=== PATIENT | female | born 1935 | race Caucasian/White ===

== ENCOUNTER 2019-11-13 06:28 | Outpatient (CLI) | payer MEDICARE, OTHER ==
[2019-11-13 14:32] LABS: Hemoglobin 10.4 g/dL (12.0-16.0); Mean Corpuscular HGB CONC 32.6 g/dL (32.0-36.0); Mean Corpuscular Hemoglobin 28.1 pg (27.0-31.0); Mean Corpuscular Volume 86.2 fL (78.0-98.0); Mean Platelet Volume 7.1 fL (7.4-10.4); Platelet Count 359 thou/uL (130-400); RBC Distribution Width 13.5 % (11.5-14.5); Red Blood Cell (RBC) Count 3.68 mill/uL (4.20-5.40); White Blood Cell (WBC) Count 6.9 thou/uL (4.8-10.8)
[2019-11-13 14:52] LABS: Anion Gap 14 mmol/L (10-20); BUN (Urea Nitrogen) 40 mg/dL (9.8-20.1); Calc. Creatinine Clearance 0 mL/min (70-130); Calcium 9.4 mg/dL (7.8-10.44); Carbon Dioxide 25 mmol/L (23-31); Chloride 105 mmol/L (98-107); Estimated GFR-MDRD 65; Glucose 92 mg/dL (83-110); Potassium 4.2 mmol/L (3.5-5.1); Sodium 140 mmol/L (136-145)
[2019-11-14 10:40] LABS: SARS-CoV-2 MS2 Positive; SARS-CoV-2 N Gene Negative; SARS-CoV-2 S Gene Negative; SARS-CoV-2 orf1ab Negative
== END 2019-11-13 06:29 | disposition home or self-care (01) ==
LOC: LABBT 06:28
PROVIDERS: ATTEND Orthopaedic Surgery
DX: Z01.812 Encounter for preprocedural laboratory examination (principal); Z11.59 Encounter for screening for other viral diseases; M17.11 Unilateral primary osteoarthritis, right knee
CPT/HCPCS: 80048; 85027; U0003; 87635

== ENCOUNTER 2019-11-17 13:02 | Inpatient (IN) | payer MEDICARE ==
[~2019-11-17 13:02] MED LIST: Dexamethasone 20 MG/5 ML VIAL ONE; EPHEDRINE 25 MG/5 ML SYRINGE ONE; Lidocaine 1% PF 5 ML VIAL ONE; PHENYLEPHRINE-NS 100 MCG/ML 10 ML SYRINGE ONE; PROPOFOL 200 MG/20 ML VIAL ONE
[2019-11-17] MEDS ORDERED: Midazolam HCl 2 mg/2 ml Vial ONE (13:57)
[2019-11-17] MEDS ORDERED: Fentanyl 100 MCG/2 ML VIAL ONE ×4 (13:57→18:38)
[2019-11-17] MEDS ORDERED: Promethazine HCl 25 MG/ML VIAL IM PRN ×2 (14:15→17:31)
[2019-11-17] MEDS ORDERED: Zolpidem Tartrate 5 MG TAB PO PRN ×2 (14:15→17:31)
[2019-11-17] MEDS ORDERED: traMADol HCl 50 MG TAB PO PRN (14:15)
[2019-11-17] MEDS ORDERED: Ondansetron PF 4 MG/2 ML Vial IVP PRN ×2 (14:15→17:31)
[2019-11-17] MEDS ORDERED: Acetaminophen 325 MG TAB PO PRN (14:15)
[2019-11-17] MEDS ORDERED: Fentanyl 100 MCG/2 ML VIAL SLOW IVP PRN (14:16)
[2019-11-17] MEDS ORDERED: diphenhydrAMINE 25 MG CAP PO PRN (17:31)
[2019-11-17] MEDS ORDERED: Loratadine 10 MG TAB PO PRN (17:33)
[2019-11-17] MEDS ORDERED: hydrOXYzine 25 MG TAB PO PRN (17:33)
[2019-11-17] MEDS ORDERED: HYDROcodone/Acetaminophen 10/325 mg Tablet ONE (18:42)
--- NOTE | 2019-11-17 18:49 | RAD ---
Exam:2 views right HISTORY: Status post total knee arthropod COMPARISON: None FINDINGS: Postoperative changes compatible with total knee arthroplasty. Subcutaneous emphysema, join t effusion. Near anatomic alignment. IMPRESSION: Expected postoperative change.
[2019-11-17] MEDS: CEFAZOLIN 2 GM in Premix Bag 1 BAG IVPB SCH (20:56)
[2019-11-17] MEDS: Meclizine HCl 25 MG TAB PO SCH (20:56)
[2019-11-17] MEDS: DULoxetine 60 MG CAP PO SCH (20:56)
[2019-11-17] MEDS: Gabapentin 300 MG CAP PO SCH (20:56)
[2019-11-17] MEDS: Aspirin 81 mg Enteric Coated Tablet PO SCH (20:56)
[2019-11-17] MEDS: rOPINIRole HCl 1 MG TAB PO SCH (21:28)
[2019-11-17] MEDS: HYDROcodone/Acetaminophen 10/325 mg Tablet PO PRN (21:28)
--- NOTE | 2019-11-18 00:42 | PDOC.HOSPP ---
- Subjective Encounter Date: 11/18/19 Encounter Time: 00:41 Subjective: Patient seen and examined. No new complaints. Denies any chest pain, SOB, abdominal pain or vomiting. Consulted for medical management. s/p Right TKR. - Objective Vital Signs & Weight: Vital Signs (12 hours) Temp Pulse Resp BP Pulse Ox 11/17/19 23:40 97.9 F 84 16 98/59 L 98 Weight Weight 122 lb Hospitalist ROS - Review of Systems Constitutional: denies: fever, chills Cardiovascular: denies: chest pain, palpitations, orthopnea, paroxysmal noc. dyspnea, edema, light headedness, other Gastrointestinal: denies: nausea, vomiting, abdominal pain, diarrhea, constipation, melena, hematochezia, other - Medication Medications: Active Medications Generic Name Dose Route Start Last Admin Trade Name Freq PRN Reason Stop Dose Admin Hydrocodone Bitart/Acetaminophen 2 tab 11/17/19 14:15 11/17/19 21:28 [place] 10/325 PO 2 tab Q4H PRN Administration PAIN (4-6) Aspirin 81 mg 11/17/19 21:00 11/17/19 20:56 Ecotrin PO 81 mg BID MAXX Administration Duloxetine HCl 60 mg 11/17/19 21:00 11/17/19 20:56 Cymbalta PO 60 mg HS MAXX Administration Fentanyl 50 mcg 11/17/19 14:16 11/17/19 20:57 Sublimaze SLOW IVP 50 mcg Q1H PRN Administration breakthrough pain Gabapentin 300 mg 11/17/19 21:00 11/17/19 20:56 Neurontin PO 300 mg TID MAXX Administration Cefazolin Sodium/Dextrose 2 gm 50 mls @ 100 mls/hr 11/17/19 21:00 11/17/19 20 :56 / Device IVPB 11/18/19 05:29 50 mls 0500,1300,2100 MAXX Administration Meclizine HCl 25 mg 11/17/19 21:00 11/17/19 20:56 Antivert PO 25 mg TID MAXX Administration Ropinirole HCl 1 mg 11/17/19 21:00 11/17/19 21:28 Requip PO 1 mg HS MAXX Administration - Exam General Appearance: NAD, awake alert Eye: anicteric sclera Heart: RRR, no murmur, no gallops, no rubs, normal peripheral pulses Respiratory: CTAB, no wheezes, no rales, no ronchi Gastrointestinal: soft, non-tender, no guarding, no rigidity, diminished bowl sounds Extremities: no cyanosis, no edema Neurological: no focal deficits Psychiatric: normal affect, A&O x 3 Hosp A/P (1) Depression Code(s): F32.9 - MAJOR DEPRESSIVE DISORDER, SINGLE EPISODE, UNSPECIFIED Status : Chronic Plan: Agree with restarting cymbalta and ropinirole (2) HTN (hypertension) Code(s): I10 - ESSENTIAL (PRIMARY) HYPERTENSION Status: Chronic Plan: BP stable Will hold fosinopril/HCTZ for now Check BMP in am (3) Chronic pain Code(s): G89.29 - OTHER CHRONIC PAIN Status: Chronic Plan: Reports pain well controlled at this time (4) Status post total right knee replacement Code(s): Z96.651 - PRESENCE OF RIGHT ARTIFICIAL KNEE JOINT Status: Acute - Plan ASA 81 mg and PT per [facility] protocol Nerve block per anesthesia BMP in am
--- NOTE | 2019-11-18 01:24 | OP ---
DATE OF PROCEDURE: 11/17/2019 PROCEDURE PERFORMED: Right total knee arthroplasty. PREOPERATIVE DIAGNOSIS: Right knee osteoarthritis. POSTOPERATIVE DIAGNOSIS: Right knee osteoarthritis. COMPLICATIONS: None. ESTIMATED BLOOD LOSS: 100 mL. [employer]: Abdirahman De Leon PA-C IMPLANTS: Deaver triathlon knee, size 3 tibia, size 4 posterior stabilized femur, size 9 tibial insert, size 29 mm asymmetric patellar component. INDICATIONS FOR PROCEDURE: Ms. Wagner is an 84-year-old female, who has advanced osteoarthritis of her right knee. She has been indicated for total knee arthroplasty to restore anatomical alignment, relieve pain and provide increased mobility. Risks have been reviewed and do include infection, pain, scarring, nerve or vascular injury, DVT, PE, and others. DESCRIPTION OF PROCEDURE: Ms. Wagner was identified in the preoperative holding area. Her correct extremity was marked. She was carried to the operating room. She was positioned supine. General anesthesia was induced. A multidisciplinary time-out was performed. The right lower extremity was prepped and draped in sterile fashion. We began the procedure with an anterior approach to the knee. We dissected down through the subcutaneous tissues to the patellar retinaculum. We made a medial parapatellar arthrotomy. At this point, we exposed the underlying knee joint. We performed a medial release and an anterior fat pad resection. We then everted the patella. We resected 9 mm of patella bone. At this point, we drilled our patella peg holes. We then placed our trial and re-measured with our caliper. This reconstituted the patella height. We then flexed the knee and moved to the femur. We inserted the femur intramedullary guide. We then placed our distal femoral cutting block. We removed osteophytes. We resected 9 mm of distal femoral bone. We then placed our four-in-one cutting block, a size 4 was appropriate for this patient. We made our anterior, posterior, and chamfer cuts. We then made our box osteotomy using our box guide. This completed femoral preparation. Next, we moved to the tibia. We placed our extramedullary tibial guide. We then pinned our guide into place. We resected the proximal tibia, 9 mm from the medial tibial bone. This leveled our tibia. We then punched our tibia with our appropriate keel. At this point, we thoroughly irrigated with copious lavage. We then trialed. A size 9 polyethylene insert gave a good fit with full extension and good range of motion. The trials were removed. We mixed cement on the back table and we implanted our final components. We held the knee in extension until fully hardened. At this point, we checked for any loose cement. We then closed in layers. #2 Vicryl suture for the capsule, followed by a layered closure was accomplished. The patient was taken to the recovery room in good condition at this point without complication. Job ID: [id number]
[2019-11-18 01:30] VITALS: BMI 24.5
[2019-11-18] MEDS: CEFAZOLIN 2 GM in Premix Bag 1 BAG IVPB SCH (04:00)
[2019-11-18] MEDS: HYDROcodone/Acetaminophen 10/325 mg Tablet PO PRN ×4 (04:02→17:55)
[2019-11-18 06:06] LABS: Hemoglobin 7.6 g/dL (12.0-16.0); Mean Corpuscular HGB CONC 31.8 g/dL (32.0-36.0); Mean Corpuscular Hemoglobin 27.7 pg (27.0-31.0); Mean Corpuscular Volume 87.1 fL (78.0-98.0); Mean Platelet Volume 7.1 fL (7.4-10.4); Platelet Count 245 thou/uL (130-400); RBC Distribution Width 13.9 % (11.5-14.5); Red Blood Cell (RBC) Count 2.74 mill/uL (4.20-5.40); White Blood Cell (WBC) Count 8.3 thou/uL (4.8-10.8)
[2019-11-18 06:25] LABS: Anion Gap 13 mmol/L (10-20); BUN (Urea Nitrogen) 31 mg/dL (9.8-20.1); Calc. Creatinine Clearance 54 mL/min (70-130); Calcium 8.5 mg/dL (7.8-10.44); Carbon Dioxide 25 mmol/L (23-31); Chloride 104 mmol/L (98-107); Estimated GFR-MDRD 67; Glucose 140 mg/dL (83-110); Potassium 4.3 mmol/L (3.5-5.1); Sodium 138 mmol/L (136-145)
[2019-11-18] MEDS: Aspirin 81 mg Enteric Coated Tablet PO SCH ×2 (08:18→21:44)
[2019-11-18] MEDS: Senokot S 8.6-50 MG TAB PO SCH ×2 (08:19→21:44)
[2019-11-18] MEDS: Gabapentin 300 MG CAP PO SCH ×3 (08:19→21:44)
[2019-11-18] MEDS: Meclizine HCl 25 MG TAB PO SCH ×3 (08:19→21:44)
[2019-11-18] MEDS: Multivitamin W/ Minerals 1 TAB PO SCH (08:19)
[2019-11-18] MEDS: Ferrous Gluconate 324 MG TAB PO SCH ×2 (08:19→16:41)
[2019-11-18] MEDS ORDERED: [UNRECOGNIZED DRUG - OTHER] PO SCH (09:00)
[2019-11-18] MEDS ORDERED: HYDROCHLOROTHIAZIDE PO SCH (09:00)
[2019-11-18] MEDS ORDERED: FOSINOPRIL PO SCH (09:00)
[2019-11-18] MEDS ORDERED: Lisinopril/Hydrochlorothiazide 20 mg/12.5 mg Tablet PO SCH (09:00)
[2019-11-18] MEDS: traMADol HCl 50 MG TAB PO PRN ×2 (11:46→21:51)
--- NOTE | 2019-11-18 17:03 | PDOC.HOSPP ---
- Subjective Subjective: Seen and examined. Patient laying in the chair with her legs propped up, in no apparent distress. She is breathing comfortably on low-flow nasal cannula. Patient does not normally require oxygen. Patient with symptomatic anemia, will transfuse one unit packed red blood cells now. Patient was able to get up and walk to the door with the help of physical therapists. She is having expected postoperative pain. Patient does have chronic vertigo and dizziness, Meclizine helps her with this. - Objective Vital Signs & Weight: Vital Signs (12 hours) Temp Pulse Pulse Resp BP BP Pulse Ox 11/18/19 16:45 98.1 F 79 20 102/61 93 L 11/18/19 16:00 98.5 F 87 20 97/59 L 91 L 11/18/19 14:02 98.3 F 94 20 110/64 93 L 11/18/19 13:47 98.7 F 86 20 101/61 93 L 11/18/19 11:38 98.0 F 83 20 97/58 L 91 L 11/18/19 08:19 95 11/18/19 07:35 97.8 F 99 18 124/75 95 Weight Weight 142 lb 12.8 oz I&O: 11/17/19 11/18/19 11/19/19 06:59 06:59 06:59 Intake Total 820 0 Balance 820 0 Result Diagrams: 11/18/19 05:44 11/18/19 05:44 Radiology Reviewed by me: Yes Hospitalist ROS - Review of Systems All other systems reviewed; all pertinent +/- noted in HPI/Subj - Medication Medications: Active Medications Generic Name Dose Route Start Last Admin Trade Name Freq PRN Reason Stop Dose Admin Hydrocodone Bitart/Acetaminophen 2 tab 11/17/19 14:15 11/18/19 13:56 [place] 10/325 PO 2 tab Q4H PRN Administration PAIN (4-6) Aspirin 81 mg 11/17/19 21:00 11/18/19 08:18 Ecotrin PO 81 mg BID MAXX Administration Dimenhydrinate 50 mg 11/18/19 09:00 11/18/19 10:18 Dramamine PO 50 mg DAILY MAXX Administration Duloxetine HCl 60 mg 11/17/19 21:00 11/17/19 20:56 Cymbalta PO 60 mg HS MAXX Administration Fentanyl 50 mcg 11/17/19 14:16 11/17/19 20:57 Sublimaze SLOW IVP 50 mcg Q1H PRN Administration breakthrough pain Ferrous Gluconate 324 mg 11/18/19 08:00 11/18/19 16:41 Fergon PO 324 mg BID-WM MAXX Administration Gabapentin 300 mg 11/17/19 21:00 11/18/19 13:57 Neurontin PO 300 mg TID MAXX Administration Iron/Minerals/Multivitamins 1 tab 11/18/19 09:00 11/18/19 08:19 Theragran M PO 1 tab DAILY MAXX Administration Meclizine HCl 25 mg 11/17/19 21:00 11/18/19 13:57 Antivert PO 25 mg TID MAXX Administration Ondansetron HCl 4 mg 11/17/19 17:31 11/18/19 08:58 Zofran IVP 4 mg Q6H PRN Administration Nausea/Vomiting Ropinirole HCl 1 mg 11/17/19 21:00 11/17/19 21:28 Requip PO 1 mg HS MAXX Administration Senna/Docusate Sodium 2 tab 11/18/19 09:00 11/18/19 08:19 Senokot S PO 2 tab BID MAXX Administration Tramadol HCl 100 mg 11/17/19 14:15 11/18/19 11:46 Ultram PO 100 mg Q6H PRN Administration Moderate Pain 4-6 - Exam General Appearance: NAD, awake alert Eye: anicteric sclera ENT: normocephalic atraumatic, moist mucosa Neck: supple, symmetric, no lymphadenopathy Heart: no murmur, no gallops, no rubs Respiratory: CTAB, no wheezes, no rales, no ronchi, normal chest expansion, no tachypnea Gastrointestinal: soft, non-tender, no guarding, no rigidity Extremities: no clubbing, 1+ LE edema Skin: no lesions, no rashes Neurological: cranial nerve grossly intact, no focal deficits Musculoskeletal: generalized weakness Psychiatric: normal affect, A&O x 3 Hosp A/P (1) Osteoarthritis Code(s): M19.90 - UNSPECIFIED OSTEOARTHRITIS, UNSPECIFIED SITE Status: Acute (2) Ataxia Code(s): R27.0 - ATAXIA, UNSPECIFIED Status: Acute (3) Vertigo Code(s): R42 - DIZZINESS AND GIDDINESS Status: Acute (4) Status post total right knee replacement Code(s): Z96.651 - PRESENCE OF RIGHT ARTIFICIAL KNEE JOINT Status: Acute (5) Chronic pain Code(s): G89.29 - OTHER CHRONIC PAIN Status: Chronic (6) Depression Code(s): F32.9 - MAJOR DEPRESSIVE DISORDER, SINGLE EPISODE, UNSPECIFIED Status : Chronic (7) HTN (hypertension) Code(s): I10 - ESSENTIAL (PRIMARY) HYPERTENSION Status: Chronic (8) Anemia Code(s): D64.9 - ANEMIA, UNSPECIFIED Status: Acute - Plan Plan: orthopedic unit orthopedic surgery consultation, recommendations appreciated postoperative care pain control physical therapy, occupational therapy evaluation treatment patient with symptomatic anemia, will transfuse one unit of packed red blood cells now goal would be to wean patient from oxygen continue other home medications as able blood pressure control blood sugar control G.I. prophylaxis DVT prophylaxis
[2019-11-18] MEDS: Ropivacaine HCl/PF 250 ML in Premix Bag 1 BAG NERVE BLCK SCH (19:14)
[2019-11-18] MEDS: DULoxetine 60 MG CAP PO SCH (21:44)
[2019-11-18] MEDS: rOPINIRole HCl 1 MG TAB PO SCH (21:44)
[2019-11-19 05:49] LABS: Hemoglobin 8.3 g/dL (12.0-16.0); Mean Corpuscular HGB CONC 32.1 g/dL (32.0-36.0); Mean Corpuscular Hemoglobin 28.2 pg (27.0-31.0); Mean Corpuscular Volume 87.9 fL (78.0-98.0); Mean Platelet Volume 7.2 fL (7.4-10.4); Platelet Count 191 thou/uL (130-400); RBC Distribution Width 14.2 % (11.5-14.5); Red Blood Cell (RBC) Count 2.92 mill/uL (4.20-5.40); White Blood Cell (WBC) Count 8.5 thou/uL (4.8-10.8)
[2019-11-19] MEDS: traMADol HCl 50 MG TAB PO PRN ×2 (05:54→16:49)
[2019-11-19] MEDS ORDERED: Labetalol HCl 100 MG/20 ML VIAL ONE (08:52)
[2019-11-19] MEDS: Ferrous Gluconate 324 MG TAB PO SCH ×2 (09:31→16:49)
[2019-11-19] MEDS: Senokot S 8.6-50 MG TAB PO SCH ×2 (09:31→21:29)
[2019-11-19] MEDS: Multivitamin W/ Minerals 1 TAB PO SCH (09:31)
[2019-11-19] MEDS: Gabapentin 300 MG CAP PO SCH ×3 (09:31→21:29)
[2019-11-19] MEDS: Aspirin 81 mg Enteric Coated Tablet PO SCH ×2 (09:31→21:29)
[2019-11-19] MEDS: Meclizine HCl 25 MG TAB PO SCH ×3 (09:31→21:29)
--- NOTE | 2019-11-19 13:29 | PDOC.HOSPP ---
- Subjective Encounter Date: 11/19/19 Encounter Time: 08:20 Subjective: Pt seen for followup re: hypertension. Feels better. - Objective Vital Signs & Weight: Vital Signs (12 hours) Temp Pulse Resp BP BP Pulse Ox Pulse Ox 11/19/19 11:35 99.3 F 81 16 103/67 94 L 11/19/19 10:48 85 115/69 11/19/19 09:38 89 L 11/19/19 08:00 92 L 11/19/19 07:49 97.6 F 85 14 115/69 92 L 11/19/19 03:48 99.5 F 90 16 112/67 92 L Pulse Ox Pulse Ox 11/19/19 11:35 11/19/19 10:48 11/19/19 09:38 85 L 92 L 11/19/19 08:00 11/19/19 07:49 11/19/19 03:48 Weight Weight 142 lb 12.8 oz I&O: 11/18/19 11/19/19 11/20/19 06:59 06:59 06:59 Intake Total 820 1720 Output Total 4 Balance 820 1716 Result Diagrams: 11/20/19 05:55 11/18/19 05:44 Additional Labs: Labs and MARs reviewed by ia Hospitalist ROS - Review of Systems Cardiovascular: denies: chest pain, palpitations, orthopnea, paroxysmal noc. dyspnea, edema, light headedness Gastrointestinal: denies: nausea, vomiting, abdominal pain, diarrhea, constipation, melena, hematochezia - Medication Medications: Active Medications Generic Name Dose Route Start Last Admin Trade Name Freq PRN Reason Stop Dose Admin Hydrocodone Bitart/Acetaminophen 2 tab 11/17/19 14:15 11/18/19 17:55 [place] 10/325 PO 2 tab Q4H PRN Administration PAIN (4-6) Aspirin 81 mg 11/17/19 21:00 11/19/19 09:31 Ecotrin PO 81 mg BID MAXX Administration Dimenhydrinate 50 mg 11/18/19 09:00 11/18/19 10:18 Dramamine PO 50 mg DAILY MAXX Administration Duloxetine HCl 60 mg 11/17/19 21:00 11/18/19 21:44 Cymbalta PO 60 mg HS MAXX Administration Fentanyl 50 mcg 11/17/19 14:16 11/17/19 20:57 Sublimaze SLOW IVP 50 mcg Q1H PRN Administration breakthrough pain Ferrous Gluconate 324 mg 11/18/19 08:00 11/19/19 09:31 Fergon PO 324 mg BID-WM MAXX Administration Gabapentin 300 mg 11/17/19 21:00 11/19/19 09:31 Neurontin PO 300 mg TID MAXX Administration Ropivacaine 250 ml/ Device 250 mls @ 10 mls/hr 11/17/19 14:15 11/18/19 19:14 NERVE BLCK 11/20/19 14:14 250 mls INF MAXX Administration Iron/Minerals/Multivitamins 1 tab 11/18/19 09:00 11/19/19 09:31 Theragran M PO 1 tab DAILY MAXX Administration Meclizine HCl 25 mg 11/17/19 21:00 11/19/19 09:31 Antivert PO 25 mg TID MAXX Administration Ondansetron HCl 4 mg 11/17/19 17:31 11/18/19 08:58 Zofran IVP 4 mg Q6H PRN Administration Nausea/Vomiting Ropinirole HCl 1 mg 11/17/19 21:00 11/18/19 21:44 Requip PO 1 mg HS MAXX Administration Senna/Docusate Sodium 2 tab 11/18/19 09:00 11/19/19 09:31 Senokot S PO 2 tab BID MAXX Administration Tramadol HCl 100 mg 11/17/19 14:15 11/19/19 05:54 Ultram PO 100 mg Q6H PRN Administration Moderate Pain 4-6 - Exam General Appearance: awake alert Eye: anicteric sclera ENT: moist mucosa Neck: supple Heart: RRR Respiratory: CTAB Gastrointestinal: soft, non-tender Extremities - other findings: s/p R knee surgery Skin: no lesions Psychiatric: normal affect, normal behavior Hosp A/P - Plan - Assessment (1) HTN (hypertension) Code(s): I10 - ESSENTIAL (PRIMARY) HYPERTENSION Status: Chronic (2) Osteoarthritis Code(s): M19.90 - UNSPECIFIED OSTEOARTHRITIS, UNSPECIFIED SITE Status: Acute (3) Status post total right knee replacement Code(s): Z96.651 - PRESENCE OF RIGHT ARTIFICIAL KNEE JOINT Status: Acute (4) Chronic pain Code(s): G89.29 - OTHER CHRONIC PAIN Status: Chronic (5) Depression Code(s): F32.9 - MAJOR DEPRESSIVE DISORDER, SINGLE EPISODE, UNSPECIFIED Status : Chronic - Plan HTN controlled pain control PT/OT eval/tx Hb improved to 8.3 after one unit pRBC transfusion
[2019-11-19] MEDS: HYDROcodone/Acetaminophen 10/325 mg Tablet PO PRN (21:28)
[2019-11-19] MEDS: Ropivacaine HCl/PF 250 ML in Premix Bag 1 BAG NERVE BLCK SCH (21:29)
[2019-11-19] MEDS: DULoxetine 60 MG CAP PO SCH (21:29)
[2019-11-19] MEDS: rOPINIRole HCl 1 MG TAB PO SCH (21:30)
[2019-11-20] MEDS: HYDROcodone/Acetaminophen 10/325 mg Tablet PO PRN ×3 (05:24→16:08)
[2019-11-20 06:12] LABS: Hemoglobin 8.4 g/dL (12.0-16.0); Mean Corpuscular HGB CONC 33.7 g/dL (32.0-36.0); Mean Corpuscular Hemoglobin 29.3 pg (27.0-31.0); Mean Corpuscular Volume 87.2 fL (78.0-98.0); Mean Platelet Volume 6.9 fL (7.4-10.4); Platelet Count 192 thou/uL (130-400); RBC Distribution Width 13.9 % (11.5-14.5); Red Blood Cell (RBC) Count 2.85 mill/uL (4.20-5.40)
[2019-11-20] MEDS: Multivitamin W/ Minerals 1 TAB PO SCH (09:51)
[2019-11-20] MEDS: Aspirin 81 mg Enteric Coated Tablet PO SCH ×2 (09:51→20:39)
[2019-11-20] MEDS: Gabapentin 300 MG CAP PO SCH ×3 (09:51→20:39)
[2019-11-20] MEDS: Senokot S 8.6-50 MG TAB PO SCH ×2 (09:51→20:39)
[2019-11-20] MEDS: Meclizine HCl 25 MG TAB PO SCH ×3 (09:51→20:40)
[2019-11-20] MEDS: Ferrous Gluconate 324 MG TAB PO SCH ×2 (09:51→16:11)
[2019-11-20] MEDS: traMADol HCl 50 MG TAB PO PRN (18:31)
--- NOTE | 2019-11-20 19:14 | PDOC.HOSPP ---
- Subjective Encounter Date: 11/20/19 Encounter Time: 09:20 Subjective: Pt seen for followup re: hypertension. c/o pain all over. - Objective Vital Signs & Weight: Vital Signs (12 hours) Temp Pulse Resp BP Pulse Ox 11/20/19 15:00 97.7 F 95 20 143/74 H 94 L 11/20/19 11:21 98 F 86 16 122/74 92 L 11/20/19 07:34 98.1 F 78 18 122/70 91 L Weight Weight 142 lb 12.8 oz I&O: 11/19/19 11/20/19 11/21/19 06:59 06:59 06:59 Intake Total 1720 490 720 Output Total 4 Balance 1716 490 720 Result Diagrams: 11/20/19 05:55 11/18/19 05:44 Additional Labs: Labs and MARs reviewed by [place] Hospitalist ROS - Review of Systems Constitutional: denies: fever, chills, sweats, weakness, malaise Respiratory: denies: cough, shortness of breath, SOB with excertion, pleuritic pain, wheezing - Medication Medications: Active Medications Generic Name Dose Route Start Last Admin Trade Name Freq PRN Reason Stop Dose Admin Acetaminophen 650 mg 11/17/19 14:15 11/20/19 18:32 Tylenol PO 650 mg Q6H PRN Administration FEVER/PAIN (1-3) Hydrocodone Bitart/Acetaminophen 2 tab 11/17/19 14:15 11/20/19 16:08 [place] 10/325 PO 2 tab Q4H PRN Administration PAIN (4-6) Aspirin 81 mg 11/17/19 21:00 11/20/19 09:51 Ecotrin PO 81 mg BID MAXX Administration Dimenhydrinate 50 mg 11/18/19 09:00 11/20/19 09:52 Dramamine PO Not Given DAILY MAXX Duloxetine HCl 60 mg 11/17/19 21:00 11/19/19 21:29 Cymbalta PO 60 mg HS MAXX Administration Fentanyl 50 mcg 11/17/19 14:16 11/17/19 20:57 Sublimaze SLOW IVP 50 mcg Q1H PRN Administration breakthrough pain Ferrous Gluconate 324 mg 11/18/19 08:00 11/20/19 16:11 Fergon PO 324 mg BID-WM MAXX Administration Gabapentin 300 mg 11/17/19 21:00 11/20/19 16:11 Neurontin PO 300 mg TID MAXX Administration Iron/Minerals/Multivitamins 1 tab 11/18/19 09:00 11/20/19 09:51 Theragran M PO 1 tab DAILY MAXX Administration Meclizine HCl 25 mg 11/17/19 21:00 11/20/19 16:11 Antivert PO 25 mg TID MAXX Administration Ondansetron HCl 4 mg 11/17/19 17:31 11/18/19 08:58 Zofran IVP 4 mg Q6H PRN Administration Nausea/Vomiting Ropinirole HCl 1 mg 11/17/19 21:00 11/19/19 21:30 Requip PO 1 mg HS MAXX Administration Senna/Docusate Sodium 2 tab 11/18/19 09:00 11/20/19 09:51 Senokot S PO 2 tab BID MAXX Administration Tramadol HCl 100 mg 11/17/19 14:15 11/20/19 18:31 Ultram PO 100 mg Q6H PRN Administration Moderate Pain 4-6 - Exam General Appearance: awake alert ENT: normocephalic atraumatic, moist mucosa Neck: supple Heart: RRR Respiratory: CTAB Gastrointestinal: soft, non-tender Psychiatric: normal affect Hosp A/P - Plan - Assessment (1) HTN (hypertension) Code(s): I10 - ESSENTIAL (PRIMARY) HYPERTENSION Status: Chronic (2) Osteoarthritis Code(s): M19.90 - UNSPECIFIED OSTEOARTHRITIS, UNSPECIFIED SITE Status: Acute (3) Status post total right knee replacement Code(s): Z96.651 - PRESENCE OF RIGHT ARTIFICIAL KNEE JOINT Status: Acute (4) Chronic pain Code(s): G89.29 - OTHER CHRONIC PAIN Status: Chronic (5) Depression Code(s): F32.9 - MAJOR DEPRESSIVE DISORDER, SINGLE EPISODE, UNSPECIFIED Status : Chronic - Plan HTN controlled pain control per primary team PT/OT eval/tx Depression moderate, stable.
[2019-11-20] MEDS: DULoxetine 60 MG CAP PO SCH (20:39)
[2019-11-20] MEDS: rOPINIRole HCl 1 MG TAB PO SCH (22:24)
[2019-11-21 05:50] LABS: Hemoglobin 7.4 g/dL (12.0-16.0); Mean Corpuscular HGB CONC 30.4 g/dL (32.0-36.0); Mean Corpuscular Hemoglobin 26.8 pg (27.0-31.0); Mean Corpuscular Volume 88.1 fL (78.0-98.0); Mean Platelet Volume 7.1 fL (7.4-10.4); Platelet Count 274 thou/uL (130-400); RBC Distribution Width 13.9 % (11.5-14.5); Red Blood Cell (RBC) Count 2.74 mill/uL (4.20-5.40); White Blood Cell (WBC) Count 6.9 thou/uL (4.8-10.8)
[2019-11-21] MEDS: Meclizine HCl 25 MG TAB PO SCH ×3 (08:48→20:44)
[2019-11-21] MEDS: Gabapentin 300 MG CAP PO SCH ×3 (08:48→20:44)
[2019-11-21] MEDS: Senokot S 8.6-50 MG TAB PO SCH ×2 (08:48→20:44)
[2019-11-21] MEDS: Multivitamin W/ Minerals 1 TAB PO SCH (08:48)
[2019-11-21] MEDS: Aspirin 81 mg Enteric Coated Tablet PO SCH ×2 (08:48→20:44)
[2019-11-21] MEDS: Acetaminophen 325 MG TAB PO PRN ×2 (08:48→15:40)
[2019-11-21] MEDS: Ferrous Gluconate 324 MG TAB PO SCH ×2 (08:49→17:44)
[2019-11-21] MEDS: rOPINIRole HCl 1 MG TAB PO SCH (20:43)
[2019-11-21] MEDS: DULoxetine 60 MG CAP PO SCH (20:44)
[2019-11-21] MEDS: traMADol HCl 50 MG TAB PO PRN (20:51)
[2019-11-21] MEDS: HYDROcodone/Acetaminophen 10/325 mg Tablet PO PRN (22:52)
[2019-11-22 05:48] LABS: Hemoglobin 7.9 g/dL (12.0-16.0); Mean Corpuscular Hemoglobin 28.1 pg (27.0-31.0); Mean Corpuscular Volume 87.6 fL (78.0-98.0); Mean Platelet Volume 6.9 fL (7.4-10.4); Platelet Count 315 thou/uL (130-400); White Blood Cell (WBC) Count 6.4 thou/uL (4.8-10.8)
[2019-11-22] MEDS: Senokot S 8.6-50 MG TAB PO SCH ×2 (08:35→21:40)
[2019-11-22] MEDS: Meclizine HCl 25 MG TAB PO SCH ×3 (08:35→21:41)
[2019-11-22] MEDS: Multivitamin W/ Minerals 1 TAB PO SCH (08:35)
[2019-11-22] MEDS: Aspirin 81 mg Enteric Coated Tablet PO SCH ×2 (08:35→21:41)
[2019-11-22] MEDS: Gabapentin 300 MG CAP PO SCH ×3 (08:35→21:40)
[2019-11-22] MEDS: Ferrous Gluconate 324 MG TAB PO SCH ×2 (08:36→17:26)
[2019-11-22] MEDS: traMADol HCl 50 MG TAB PO PRN (15:32)
[2019-11-22] MEDS: HYDROcodone/Acetaminophen 10/325 mg Tablet PO PRN (21:40)
[2019-11-22] MEDS: DULoxetine 60 MG CAP PO SCH (21:41)
[2019-11-22] MEDS: rOPINIRole HCl 1 MG TAB PO SCH (22:07)
[2019-11-23 06:04] LABS: Hemoglobin 8.4 g/dL (12.0-16.0); Mean Corpuscular HGB CONC 31.9 g/dL (32.0-36.0); Mean Corpuscular Hemoglobin 27.9 pg (27.0-31.0); Mean Corpuscular Volume 87.3 fL (78.0-98.0); Mean Platelet Volume 6.6 fL (7.4-10.4); Platelet Count 380 thou/uL (130-400); Red Blood Cell (RBC) Count 3.03 mill/uL (4.20-5.40); White Blood Cell (WBC) Count 7.1 thou/uL (4.8-10.8)
[2019-11-23] MEDS: Meclizine HCl 25 MG TAB PO SCH ×3 (09:28→20:25)
[2019-11-23] MEDS: Aspirin 81 mg Enteric Coated Tablet PO SCH ×2 (09:28→20:25)
[2019-11-23] MEDS: Multivitamin W/ Minerals 1 TAB PO SCH (09:28)
[2019-11-23] MEDS: Senokot S 8.6-50 MG TAB PO SCH ×2 (09:28→20:25)
[2019-11-23] MEDS: Ferrous Gluconate 324 MG TAB PO SCH ×2 (09:29→17:46)
[2019-11-23] MEDS: Gabapentin 300 MG CAP PO SCH ×3 (09:29→20:25)
[2019-11-23] MEDS: HYDROcodone/Acetaminophen 10/325 mg Tablet PO PRN ×2 (15:12→20:25)
[2019-11-23] MEDS: DULoxetine 60 MG CAP PO SCH (20:25)
[2019-11-23] MEDS: rOPINIRole HCl 1 MG TAB PO SCH (20:40)
[2019-11-24 05:09] LABS: Hemoglobin 8.6 g/dL (12.0-16.0); Mean Corpuscular HGB CONC 32.7 g/dL (32.0-36.0); Mean Corpuscular Hemoglobin 28.4 pg (27.0-31.0); Mean Platelet Volume 6.2 fL (7.4-10.4); Platelet Count 419 thou/uL (130-400); Red Blood Cell (RBC) Count 3.03 mill/uL (4.20-5.40); White Blood Cell (WBC) Count 7.9 thou/uL (4.8-10.8)
[2019-11-24] MEDS: Aspirin 81 mg Enteric Coated Tablet PO SCH (09:25)
[2019-11-24] MEDS: Gabapentin 300 MG CAP PO SCH ×2 (09:26→14:50)
[2019-11-24] MEDS: Multivitamin W/ Minerals 1 TAB PO SCH (09:26)
[2019-11-24] MEDS: Meclizine HCl 25 MG TAB PO SCH ×2 (09:26→14:50)
[2019-11-24] MEDS: Ferrous Gluconate 324 MG TAB PO SCH ×2 (09:27→18:40)
[2019-11-24] MEDS: Senokot S 8.6-50 MG TAB PO SCH (09:27)
[2019-11-24] MEDS: HYDROcodone/Acetaminophen 10/325 mg Tablet PO PRN ×2 (14:50→18:45)
[2019-11-24 16:03] VITALS: BP 110/69; TEMP 97.8
--- NOTE | 2019-11-26 12:48 | DIS ---
DATE OF ADMISSION: 11/19/2019 DATE OF DISCHARGE: 11/24/2019 This is Abdirahman De Leon PA-C dictating a report for Miller Mejias MD. PREOPERATIVE DIAGNOSIS: Right knee osteoarthritis/degenerative joint disease. DISCHARGE DIAGNOSIS: Right knee osteoarthritis/degenerative joint disease. PROCEDURE: The patient underwent a right total knee replacement. HOSPITAL STAY: Unremarkable, but she did have problems with activity. The family did not want her initially to go to any rehab skilled facility, but as they found that she was not progressing as fast as we would like her, rehab was the final option. She had no hospital complications during her stay. DISCHARGE CONDITION: Good/stable. DISPOSITION: To rehab, inpatient. FOLLOWUP: Followup would be in 10 to 14 days or sooner if there are problems and/or concerns. DISCHARGE MEDICATIONS: Discharge medications given with usage instructions. Job ID: [id number]
--- NOTE | 2019-11-27 08:25 | PQF ---
Patient was admitted by orthopedic surgery service. Please direct this query to their service. EDWARD LORENZ DAVID [id number] CLINICAL DOCUMENTATION CLARIFICATION FORM: POST DISCHARGE Addendum to original discharge summary date: ____ Late entry note date: __ DATE:11/27/2019 ATTN: Des Grier Please exercise your independent, professional judgment in responding to the clarification form. Clinical indicators are provided on the bottom of this form for your review In your clinical opinion based on clinical findings below, can you please identify the condition as the reason for IP admission if due to: Please check appropriate box(s): [ ] Osteoarthritis [ ] Acute blood loss anemia [ ] Other diagnosis [ ] Unable to determine For continuity of documentation, please document condition throughout progress notes and discharge summary. Thank You. CLINICAL INDICATORS - SIGNS / SYMPTOMS / LABS Vital signs 11/17 BP 90/53, Pulse83, Resp 16, Temp 99.4, O2 sat 92% Laboratory 11/17 RBC 2.75 Hgb 7.6, Hct 23.8 Laboratory 11/18 RBC 2.92, Hgb 8.3, Hct 25.7 Operative report 11/16 has advance osteoarthritis of her tight knee Operative report 11/16 100ml estimate blood loss Scanned PN p3 11/19 hypoxia/Acute blood loss anemia\hypotension RISK FACTORS Operative report 11/16 84 year-ols Female Operative report 11/16 - Right knee osteoarthritis Scanned PN p3 11/19 - Acute blood loss anemia TREATMENTS: Operative report 11/16 Right Total knee arthroplasty Blood bank 11/17 transfused PRBC MAR 11/16 [place] 1tab oral MAR 11/16 IV Fentanyl 100mcg Collected 11/16 Knee Xray (This form is maintained as a part of the permanent medical record) 2014 [employer]. All Rights Reserved [email or web address]
--- NOTE | 2019-11-27 08:26 | PQF ---
Patient was admitted by orthopedic surgery service. Please direct this query to their service. EDWARD LORENZ DAVID [id number] CLINICAL DOCUMENTATION CLARIFICATION FORM: POST DISCHARGE Addendum to original discharge summary date: ____ Late entry note date: __ DATE:11/27/2019 ATTN: Des Grier Please exercise your independent, professional judgment in responding to the clarification form. Clinical indicators are provided on the bottom of this form for your review Please check appropriate box(s): [ ] Hypovolemic Shock [ ] Hemorrhagic Shock due to surgery: [ ] Postoperative Shock unspecified [ ] Shock Unspecified [ ] Other diagnosis [ ] Unable to determine In addition, please specify: Present on Admission (POA): [ ] Yes [ ] No [ ] Unable to determine For continuity of documentation, please document condition throughout progress notes and discharge summary. Thank You. CLINICAL INDICATORS - SIGNS / SYMPTOMS / LABS Vital signs 11/17 BP 90/53, Pulse83, Resp 16, Temp 99.4, O2 sat 92% Laboratory 11/17 RBC 2.75 Hgb 7.6, Hct 23.8 Laboratory 11/18 RBC 2.92, Hgb 8.3, Hct 25.7 Operative report 11/16 100ml estimate blood loss Scanned PN p3 11/19 hypoxia/Acute blood loss anemia\hypotension RISK FACTORS Operative report 11/16 84 year-old Female Operative report 11/16 - Right knee osteoarthritis s/p Arthroplasty Scanned PN p3 11/19 - Acute blood loss anemia TREATMENTS: Blood bank 11/17 transfused PRBC SEP 03 [place] 1tab oral SEP 03 IV Fentanyl 100mcg MAR 11/18 IVF NS 1L (This form is maintained as a part of the permanent medical record) 2014 [employer]. All Rights Reserved [email or web address]
== END 2019-11-24 19:45 | DRG 470 ==
LOC: SDC 13:02 → SJJU 17:31 → SDC 11-19 18:29
PROVIDERS: ADMIT Orthopaedic Surgery; ATTEND Orthopaedic Surgery
PROC: 0SRC0J9 Replacement of Right Knee Joint with Synthetic Substitute, Cemented, Open Approach (ICD-10-PCS; principal; 2019-11-17)
PROC: 30233N1 Transfusion of Nonautologous Red Blood Cells into Peripheral Vein, Percutaneous Approach (ICD-10-PCS; 2019-11-18)
DX: M17.11 Unilateral primary osteoarthritis, right knee (principal); D62 Acute posthemorrhagic anemia; F32.9 Major depressive disorder, single episode, unspecified; I10 Essential (primary) hypertension; G89.29 Other chronic pain; R42 Dizziness and giddiness; R09.02 Hypoxemia; Z79.83 Long term (current) use of bisphosphonates; Z79.82 Long term (current) use of aspirin; Z79.899 Other long term (current) drug therapy; Z88.2 Allergy status to sulfonamides; Z88.5 Allergy status to narcotic agent; Z88.7 Allergy status to serum and vaccine
CPT/HCPCS: 36415; 36416; 36430; 80048; 85027; 86850; 86900; 86901; C1713; C1776; J0690; J1100; J2001; J2250; J2405; J2704; J2795; J3010; P9016; Q0163

== ENCOUNTER → 2020-02-03 | Day surgery (SDC) | payer MEDICARE ==
--- NOTE | 2020-02-03 16:25 | SPC ---
PICC PLACEMENT ULTRASOUND-GUIDED VENOUS ACCESS: (Peripherally inserted central catheter) DATE: 02/03/2020 HISTORY: 84-year-old female with right knee infection requiring long-term IV antibiotics. Previously placed ri ght-sided PICC was inadvertently removed. TECHNIQUE: Catheter caliber: 5 [place] Catheter trim length:45 cm Catheter lumen number:single Catheter tip location:Superior vena cava/right atrial junction Vein accessed:left basilic Total fluoroscopy time: 0.4 min. Dose area product: 1322 mGy*cm^2 Signed, informed consent was obtained. A tourniquet was applied at the proximal aspect of the arm. Th e arm was prepped and draped in the usual sterile fashion. A 25-gauge needle was used to applied buffered lidocaine superficially. The vein was punctured with a 21-gauge micropuncture needle under u ltrasound guidance. A 0.018 inch guidewire was advanced through the micropuncture needle and into the vein. Under fluoroscopic guidance, the guidewire was advanced to the superior vena cava. The PICC was flushed and trimmed to the appropriate length. The micropuncture needle was exchanged over the guidewire for a 5 [place] peel-away dilator sheath. The dilator was exchanged over the guidewire for t he PICC, which was then further advanced under fluoroscopy. The sheath and guidewire were removed. The PICC was flushed again and secured in place at the arm after adjustment of tip position. The esha ent tolerated the procedure well. There was no complication. IMPRESSION: Successful placement of PICC (peripherally inserted central catheter).
== END ==
LOC: SPEC 14:32
PROVIDERS: ATTEND Internal Medicine Infectious Disease
PROC: 02HV33Z Insertion of Infusion Device into Superior Vena Cava, Percutaneous Approach (ICD-10-PCS; principal; 2020-02-03)
PROC: B548ZZA Ultrasonography of Superior Vena Cava, Guidance (ICD-10-PCS; 2020-02-03)
DX: M00.9 Pyogenic arthritis, unspecified (principal); Z79.2 Long term (current) use of antibiotics; Z88.2 Allergy status to sulfonamides; Z88.5 Allergy status to narcotic agent; Z88.7 Allergy status to serum and vaccine
CPT/HCPCS: 36569; C1751